=== PATIENT | male | born 1960 | race Caucasian/White ===

== ENCOUNTER 2016-08-04 23:53 | Emergency (ER) | payer MEDICARE, MEDICAID ==
[~2016-08-04] VITALS: Ht 180.3 cm; Wt 72.7 kg
[~2016-08-04 23:53] MED LIST: ASPI-973 PO; CHLO473M13 MM; CHOL100045 PO; LAMO150T2 PO; LEVE100014 PO; LORA1TAB PO; MAPAP PO; SIMV10TA4 PO; [UNRECOGNIZED DRUG - OTHER] TP
[2016-08-04 23:58] VITALS: BP 136/65; PULSE 77; RESP 18; O2SAT 97
--- NOTE | 2016-08-05 00:22 | ED.REPORT ---
HPI-Extremity Problem Lower Date of Service Aug 05, 2016 ED Provider: Dr. Boni German M.D. A 56 year old developmentally delayed male with a history of hypertension, hyperlipidemia, seizure disorder, and autism presents to the ED accompanied by his telephone maintainer with a left calf abrasion onset yesterday between 00:00 and 21: 00. Staff at the patient's assisted living home were concerned because the cause of the abrasion is unknown. The patient's telephone maintainer denies other symptoms. History is limited due to patient's nonverbal baseline. Nursing Notes Stated Complaint: BRUISE AND CUT ON LEG Chief Complaint: Extremity Trauma Nursing Notes Reviewed: Yes Allergies: Coded Allergies: No Known Drug Allergies (Unverified Allergy, Unknown, 09/23/15) Uncoded Allergies: ENVIRONMENTAL - HAYFEVER (Allergy, Unknown, UNKNOWN, 09/22/15) Scheduled ([Dermacerin Cream]) 1 APPLIC TP DAILY Aspirin (Aspirin) 81 Mg Tablet 81 MG PO DAILY Chlorhexidine Gluconate (Chlorhexidine Gluconate) 473 Ml Mouthwash 473 ML MM BID Cholecalciferol (Vitamin D3) (Vitamin D) 1,000 Unit Capsule 1,000 UNIT PO DAILY Lamotrigine (Lamotrigine) 150 Mg Tablet 300 MG PO BID Levetiracetam (Keppra) 1,000 Mg Tablet 1,500 MG PO TID TAKES 1500MG IN AM; 100MG @ NOON & 1500MG IN PM Simvastatin (Simvastatin) 10 Mg Tablet 10 MG PO HS Scheduled PRN ([Mapap]) 500-1,000 MG PO Q6H PRN PRN PRN Lorazepam (Lorazepam) 1 Mg Tablet 1 MG PO TID PRN PRN For Anxiety General Time Seen by MD: 00:21 Transferred From: [facility] Chief Complaint Other (Left Calf Abrasion) Hx Obtained From: Marine Services Technician Unable to Obtain Hx: Patient condition, Mental status Arrived By: Walk-in Onset Occurred: Yesterday Symptom Duration: Since onset Caused by: Mechanism unknown Associated with: Denies: Fever, Unable to walk, Vomiting Pertinent Negative: Relieved by nothing Immunizations: Unknown Recent Healthcare: No recent doctor visit Past Medical History Past Medical History Seizure disorder Hypertension Hyperlipidemia Autism Developmental Delay - Non-verbal, follows simple commands Past Surgical History Dental restorations Removal of cerumen impaction Smoking History Never Smoker Social History Other Social History: Lives in [facility] Ambulatory Status Independent Review of Systems Unable to Obtain ROS Patient condition, Mental status Physical Exam Physical Exam Notes: Initial Vital Signs Vital Signs (First) Date Time Temp Pulse Resp B/P Pulse Ox O2 Delivery O2 Flow Rate FiO2 08/04/16 23:58 36.0 77 18 136/65 97 Room Air Initial VS: Reviewed Head / Eyes: Atraumatic, Normocephalic ENT: Conjunctiva normal, No scleral icterus Neck: Supple, Full range of motion Respiratory: No respiratory distress Skin: Warm, Dry, No cyanosis Lower Extremity / Pelvis / MS: Neurologic intact, Vascular intact Left Leg / Calf: Positive: Ecchymosis present (5x4 cm to medial inferior left calf ), Negative: Erythema present Trauma / Burn / Environmental: Positive: Abrasion (Posterior inferior left calf , consistent with toenail induced injury) No signs of infection No fluctuance or mass Ankle / Foot: No swelling, Neurologic intact, Vascular intact General/Constitutional: Awake, Alert, No acute distress NEUROLOGIC: At baseline per telephone maintainer Re-Eval/Medical Decision Med Decision/Clinical Course Small abrasion and bruise on the lower leg likely the result of a seizure unwitnessed during sleep. Basic first aid applied. Reason blood levels of his seizure medicines were drawn and greater due for a visit for review early this week. Levels not repeated. Discharged in stable condition. Source of Hx: Old records Re-Evaluation/Progress : Time of Eval: 01:00 Patient Status: Condition improved Re-Evaluation/Progress Note: Discussed with patient's telephone maintainer physical exam findings, diagnosis, and plan for discharge. Follow-up and return to the ER instructions given. Patient agrees with plan for care and all questions were addressed. Counseled Regarding: Diagnosis, Need for follow-up, When/why to return to ED Discharge & Departure Shift Change Sign-Out Response to Therapy: Improved Impression: Primary Impression: Abrasion, leg w/o infection Additional Impression: Hematoma of lower extremity Encounter type: initial encounter Laterality: left Qualified Code: S80.12XA - Contusion of left lower leg, initial encounter Disposition: Home Discharge Condition All VS Reviewed: Yes Condition: Improved Patient Instructions: Abrasion (ED), Contusions in Adults (ED) Additional Instructions: I suspect he may have had a small seizure while asleep, and scraped and contused his leg. Follow-up with his doctor regarding the drug levels already drawn. Return if any immediate issues. Cte the abraded area with bacitracin, and cover at night. Continue this until the wound is healed. Referrals: Narayan Albarran DO (PCP) Lenny Don MD (Family) Cristinibsarai Attestation Portions of this note were transcribed by Chuyita Ibrahim. I, Dr. German, personally performed the history, physical exam, and medical decision-making; I reviewed and confirmed the accuracy of the information in the transcribed note. Signed by: Marquita Long, 08/05/2016, 03:00 copies to: Narayan Albarran DO; Lenny Don MD, Christopher W MD Aug 05, 2016 00:21 CHUYITA IBRAHIM Aug 05, 2016 00:59
[2016-08-05 01:21] VITALS: BP 136/65; PULSE 77; RESP 18; O2SAT 97
== END 2016-08-05 01:22 | disposition home or self-care (01) ==
LOC: SED 23:53
DX: S80.812A Abrasion, left lower leg, initial encounter (principal); S80.12XA Contusion of left lower leg, initial encounter; X58.XXXA Exposure to other specified factors, initial encounter; Y92.129 Unspecified place in nursing home as the place of occurrence of the external cause; Y93.89 Activity, other specified; Y99.8 Other external cause status; I10 Essential (primary) hypertension; E78.5 Hyperlipidemia, unspecified; G40.909 Epilepsy, unspecified, not intractable, without status epilepticus; F84.0 Autistic disorder; Z87.898 Personal history of other specified conditions; Z79.82 Long term (current) use of aspirin

== ENCOUNTER 2016-12-06 10:17 | Emergency (ER) | payer MEDICARE, MEDICAID ==
[~2016-12-06] VITALS: Ht 167.6 cm; Wt 63.0 kg
[2016-12-06 10:20] VITALS: BP 136/85; PULSE 103; RESP 16; O2SAT 96
--- NOTE | 2016-12-06 10:54 | ED.REPORT ---
HPI-Head Prob / Injury Date of Service Dec 06, 2016 ED Provider: Ana Elkins MD 56 y/o developmentally delayed male with a hx of autism, HTN, hyperlipidemia and seizure disorder presents to the ED with his caretakers due to a laceration over his left eyebrow after he hit his head on the bathroom counter just prior to arrival. The pts caregivers state this is his typical behavior when he gets frustrated. The pt is non-verbal and is not stating any other complaints. Nursing Notes Stated Complaint: LACERATION ON HEAD Chief Complaint: Head, Face, Neck Trauma Nursing Notes Reviewed: Yes Allergies: Coded Allergies: No Known Drug Allergies (Unverified Allergy, Unknown, 09/23/15) Uncoded Allergies: ENVIRONMENTAL - HAYFEVER (Allergy, Unknown, UNKNOWN, 09/22/15) Scheduled ([Dermacerin Cream]) 1 APPLIC TP DAILY Aspirin (Aspirin) 81 Mg Tablet 81 MG PO DAILY Chlorhexidine Gluconate (Chlorhexidine Gluconate) 473 Ml Mouthwash 473 ML MM BID Cholecalciferol (Vitamin D3) (Vitamin D) 1,000 Unit Capsule 1,000 UNIT PO DAILY Lamotrigine (Lamotrigine) 150 Mg Tablet 300 MG PO BID Levetiracetam (Keppra) 1,000 Mg Tablet 1,500 MG PO TID TAKES 1500MG IN AM; 100MG @ NOON & 1500MG IN PM Simvastatin (Simvastatin) 10 Mg Tablet 10 MG PO HS Scheduled PRN ([Mapap]) 500-1,000 MG PO Q6H PRN PRN PRN Lorazepam (Lorazepam) 1 Mg Tablet 1 MG PO TID PRN PRN For Anxiety General Time Seen by Provider: 10:34 Chief Complaint Laceration Hx Obtained From: Custodial Foreman Arrived By: Walk-in Onset Occurred: Just prior to arrival Symptom Duration: Since onset Caused by: Blunt trauma Recent Healthcare: No recent doctor visit Similar Sx Previous: No Past Medical History Past Medical History Seizure disorder Hypertension Hyperlipidemia Autism Developmental Delay - Non-verbal, follows simple commands Past Surgical History Dental restorations Removal of cerumen impaction Smoking History Never Smoker Social History Other Social History: Lives in [facility] Ambulatory Status Independent Review of Systems Reports: laceration over left eyebrow Complete sys rev & neg: except as marked. Physical Exam Initial Vital Signs Vital Signs (First) Date Time Temp Pulse Resp B/P Pulse Ox O2 Delivery O2 Flow Rate FiO2 12/06/16 10:20 36.8 103 16 136/85 96 Room Air Initial VS: Reviewed Respiratory: Breath sounds normal, Clear to auscultation, No respiratory distress Cardiovascular: Regular rate & rhythm, Heart sounds normal, Intact distal pulses Extremities: Vascular intact, Neuro intact, No swelling, No tenderness Skin: Warm, Dry, No cyanosis General/Constitutional: Awake, Alert, Cooperative Non-verbal Head / Eyes: PERRL, EOMI, No periorbital swelling, Conjunctiva NL, Eyelids NL Cornea/Anterior Chamber: Negative: Hyphema L, Hyphema R Conjunctiva / Sclera: Negative: Injected left, Injected right, Subconj hemorrhage left, Subconj hemorrhage right 1cm laceration over left eyebrow ENT: Airway patent, Nose exam NL, No facial swelling Right TM obscured by cerumen. Left TM normal. Neck: Atraumatic, Supple, Full range of motion Neurologic: No motor deficits, No sensory deficits Back: Atraumatic, Full range of motion No spinal tenderness. Procedures Laceration Management Laceration Management: 2 suhail placed in eyebrow wound. bleeding controlled post procedure. pt did remarkably well with procedure. discussed wound care with caregivers. Procedure Performed by: Allied health pract Consent / Setup / Site Prep: Consent from guardian, Consent from online advertising manager Location of Wound: l eyebrow Wound Length: 1 cm Local Anesthesia: Other (let) Digital Block: No Irrigation: Copious Foreign Body Explore / Removal: Explored for foreign body Re-Eval/Medical Decision Med Decision/Clinical Course 1110- report from Dr Elaine. I personally examined pt. 1 cm laceration to left eyebrow. otherwise, grossly neuro is intact and pt at baseline per caregivers. Patient calm in room with LET over eyebrow. Pt just given ativan for procedure. will give med time to work before i procede. 1215- pt tolerated procedure well. discussed wound care with caregivers. not utd on tetanus Source of Hx: Old records Counseled Regarding: Diagnosis, Need for follow-up, When/why to return to ED Discharge & Departure Primary Impression: Facial laceration Encounter type: initial encounter Qualified Code: S01.81XA - Laceration without foreign body of other part of head, initial encounter Disposition: Home All VS Reviewed: Yes Condition: Stable Patient Instructions: Laceration (ED) Additional Instructions: Thank you for entrusting us with Darnell's care today. 2 suhail were placed in Darnell's eyebrow today. These can be taken out in 7 days. In the meantime monitor for signs of infection including redness, purulent drainage, increased pain or swelling and return to the ER or see his PCP if these occur. Also monitor for altered mental status, decreased level of consciousness, fevers, or any atypical findings in Darnell's return to the ER immediately if these occur. You may apply topical antibiotic ointment twice a day for 5 days to prevent infection. Otherwise do not get wound wet for 24 hours and then gentle washing with soap and water. Cover with a bandage if necessary. use Tylenol as needed for pain apply ice to wound for swelling and pain at least 3 times a day for 20 minutes. Referrals: Narayan Albarran DO (PCP) EDSupervising Provider for APC: Ana Elkins MD, Sarah C MD Dec 06, 2016 10:54 Katina Berry Dec 06, 2016 11:03 Jaylyn Melendez Dec 06, 2016 11:16
[2016-12-06] MEDS ORDERED: Lidocaine-Epi-Tetracaine Solution 3 mL Syringe TOPICAL ONE (10:55)
[2016-12-06] MEDS ORDERED: LORazepam 2 mg Tablet PO ONE (10:55)
[2016-12-06] MEDS ORDERED: Tissue Adhesive Liq (CS Supplied) TOPICAL ONE (12:20)
[2016-12-06] MEDS ORDERED: TdaP Vaccine 0.5 mL Inj IM ONE (12:35)
[2016-12-06 12:57] VITALS: BP 120/87; PULSE 90; RESP 14; O2SAT 98
== END 2016-12-06 12:58 | disposition home or self-care (01) ==
LOC: SED 10:17
DX: S01.112A Laceration without foreign body of left eyelid and periocular area, initial encounter (principal); W22.8XXA Striking against or struck by other objects, initial encounter; Y93.89 Activity, other specified; Y92.002 Bathroom of unspecified non-institutional (private) residence as the place of occurrence of the external cause; Y99.8 Other external cause status; I10 Essential (primary) hypertension; E78.5 Hyperlipidemia, unspecified; F84.0 Autistic disorder; Z79.82 Long term (current) use of aspirin

== ENCOUNTER 2016-12-09 18:24 | Emergency (ER) | payer MEDICARE, MEDICAID ==
[2016-12-09 18:33] VITALS: BP 101/66; PULSE 91; RESP 16; O2SAT 98
--- NOTE | 2016-12-09 18:55 | ED.REPORT ---
HPI-Seizure Date of Service Dec 09, 2016 ED Provider: Marylou Chavis MD Pt is a 56 year old, non-verbal male who lives in his own home with 24 hour care who presents to the ED with concerns for 3 seizures that occurred today. His healthcare applications analyst reports that he typically has 1-2 seizers per month, but had three today. She reports that these lasted about 2 minutes each. Pt's caregiver states that he experienced trauma to his head on , requiring several suhail to his head. He has been taking his seizure medications as prescribed. Nursing Notes Stated Complaint: 3 SEIZURES TODAY Chief Complaint: Seizure Nursing Notes Reviewed: Yes Allergies: Coded Allergies: No Known Drug Allergies (Unverified Allergy, Unknown, 09/23/15) Uncoded Allergies: ENVIRONMENTAL - HAYFEVER (Allergy, Unknown, UNKNOWN, 09/22/15) Scheduled ([Dermacerin Cream]) 1 APPLIC TP DAILY Aspirin (Aspirin) 81 Mg Tablet 81 MG PO DAILY Chlorhexidine Gluconate (Chlorhexidine Gluconate) 473 Ml Mouthwash 473 ML MM BID Cholecalciferol (Vitamin D3) (Vitamin D) 1,000 Unit Capsule 1,000 UNIT PO DAILY Lamotrigine (Lamotrigine) 150 Mg Tablet 300 MG PO BID Levetiracetam (Keppra) 1,000 Mg Tablet 1,500 MG PO TID TAKES 1500MG IN AM; 100MG @ NOON & 1500MG IN PM Simvastatin (Simvastatin) 10 Mg Tablet 10 MG PO HS Scheduled PRN ([Mapap]) 500-1,000 MG PO Q6H PRN PRN PRN Lorazepam (Lorazepam) 1 Mg Tablet 1 MG PO TID PRN PRN For Anxiety General Time Seen by Provider: 18:59 Chief Complaint Chief Complaint: Seizure, focal Hx Obtained From: Business Development Coordinator Arrived By: Walk-in Onset Occurred: Just prior to arrival Similar Sx Previous: Yes Past Medical History Past Medical History Seizure disorder Hypertension Hyperlipidemia Autism Developmental Delay - Non-verbal, follows simple commands Past Surgical History Dental restorations Removal of cerumen impaction Smoking History Never Smoker Social History Other Social History: Lives in [facility] Ambulatory Status Independent Review of Systems Unable to Obtain ROS Mental status Constitutional: Denies: Fever, Malaise Neurologic: Reports: Seizure Complete sys rev & neg: except as marked. Physical Exam Initial Vital Signs Vital Signs (First) Date Time Temp Pulse Resp B/P Pulse Ox O2 Delivery O2 Flow Rate FiO2 12/09/16 18:33 36.0 91 16 101/66 98 Room Air Initial VS: Reviewed Head / Eyes: Atraumatic, Normocephalic, PERRL Abdomen / GI: Soft, Non-tender, No guarding, No rebound, No distention Skin: Warm, Dry, No cyanosis General/Constitutional: Awake, Cooperative Well healing laceration and hematoma over his left eyebrow Neck: Atraumatic, Supple Respiratory / Chest: Breath sounds NL, Breath sounds = bilat, No respiratory distress Cardiovascular: Heart rate NL, Regular rhythm, Heart sounds NL Neurologic: No sensory deficits Pt is at his baseline, per rn provider relations. ENT: Airway patent Cerumen aclusion bilaterally Interpretation & Diagnostics Interpretation & Diagnostics: Urine dip is negative Lab Results Interpretation Result Diagram: 12/09/16194412/09/161944 Test 12/09/16 19:45 12/09/16 21:00 White Blood Count 8.8th/mm3 (3.8-10.1) Red Blood Count 4.65mil/mm3 (4.40-5.80) Hemoglobin 14.0g/dL (13.8-17.2) Hematocrit 42.1% (41.0-50.0) Mean Corpuscular Volume 90.5fL (81-100) Mean Corpuscular Hemoglobin 30.1pg (27.0-35.0) Mean Corpuscular Hemoglobin Concent 33.3% (32.0-37.0) Red Cell Distribution Width 11.8% (12.3-15.4) Platelet Count 293bil/L (150-400) Neutrophils (%) (Auto) 79.3% (40-74) Lymphocytes (%) (Auto) 13.3% (14-46) Monocytes (%) (Auto) 6.4% (4-12) Eosinophils (%) (Auto) 0.2% (0-5) Basophils (%) (Auto) 0.6% (0-3) Sodium Level 139mEq/L (134-144) Potassium Level 4.1mEq/L (3.5-5.2) Chloride Level 103mEq/L (97-108) Carbon Dioxide Level 23mmol/L (18-29) Blood Urea Nitrogen 9mg/dL (6-24) Creatinine 0.77mg/dL (0.76-1.27) Estimat Glomerular Filtration Rate 111mL/min (>59) Glucose Level 106mg/dL (60-99) Calcium Level 8.9mg/dL (8.5-10.1) Magnesium Level 2.2mg/dL (1.6-2.6) Total Bilirubin 0.3mg/dL (0.0-1.2) Aspartate Amino Transf (AST/SGOT) 19U/L (0-50) Alanine Aminotransferase (ALT/SGPT) 16U/L (0-44) Alkaline Phosphatase 79U/L (25-150) Total Protein 6.8g/dL (6.4-8.4) Albumin 3.9g/dL (3.4-5.0) Hold Walters Top Tube Received (Received) Hold Urine Received (Received) Re-Eval/Medical Decision Source of Hx: Old records, Business Development Coordinator Counseled Regarding: Diagnosis, Lab results, Need for follow-up, When/why to return to ED Discharge & Departure Impression: Primary Impression: Seizure Disposition: Home Discharge Condition All VS Reviewed: Yes Condition: Stable Additional Instructions: Labs were completely unremarkable today There is no evidence of a bladder infection or infection otherwise. A CT scan of the head was done given his 3 seizures today and the recent head trauma. CT scan was entirely normal At this point I do not have a full explanation for why he has had 3 seizures today. Please continue all of his seizure medications His seizure medication drug levels should be available [address] contact [address] Osuna, his neurologist, to make sure the levels are appropriate and to see if he has any recommendations on changing medications. Posterior excellent job of cooperating and making the work up easier today. I hope that he does not have any additional seizures tonight Referrals: Narayan Albarran DO (PCP) Scribe Attestation Portions of this note were transcribed by Elsa Medina. I, Dr. Chavis personally performed the history, physical exam and medical decision-making; I reviewed and confirmed the accuracy of the information in the transcribed note. Signed by: Marquita Rios, 12/09/2016 [Time] copies to: Narayan Albarran DO; [place]villeSergio sanders MD, Shawna L MD Dec 09, 2016 18:55 CORNELIO MEDINA Dec 09, 2016 19:03
--- NOTE | 2016-12-09 19:53 | DRSVH ---
PROCEDURE: CT BRAIN WITHOUT CONTRAST ([id number]) INDICATIONS: trauma 48hrs ago, increased seizures TECHNIQUE: Noncontrast 4.5 mm thick angled axial sections acquired from the foramen magnum to the vertex, with c oronal reformats. COMPARISON: 06.24.[address] FINDINGS: Image quality: Excellent. CSF spaces: Basal cisterns are patent. No extra-axial fluid collections. Ventricles are normal in size and shape. Brain: No midline shift. No intracranial masses or hemorrhage. Valentin-white matter interface is norm al. Skull and face: Calvarium and visualized facial bones are intact, without suspicious lesions. Sinuses: Visualized sinuses and mastoids are clear. IMPRESSION: No acute process. Dictated by: Lincoln Bolanos M.D. on 12/09/2016 at 19:50 Approved by: Lincoln Bolanos M.D. on 12/09/2016 at 19:51
[2016-12-09 19:58] LABS: BASOPHILS % (AUTO) 0.6 % (0-3); EOSINOPHILS % (AUTO) 0.2 % (0-5); MONOCYTES % (AUTO) 6.4 % (4-12); Mean Corpuscular Hemoglobin 30.1 pg (27.0-35.0); Mean Corpuscular Volume 90.5 fL (81-100); NEUTROPHILS % (AUTO) 79.3 % (40-74); Platelet Count 293 bil/L (150-400)
[2016-12-09 20:20] LABS: Magnesium 2.2 mg/dL (1.6-2.6)
[2016-12-09 21:18] VITALS: BP 116/78; PULSE 78; RESP 14; O2SAT 96
== END 2016-12-09 21:19 | disposition home or self-care (01) ==
LOC: SED 18:24
DX: R56.9 Unspecified convulsions (principal); I10 Essential (primary) hypertension; E78.5 Hyperlipidemia, unspecified; F84.0 Autistic disorder; Z87.828 Personal history of other (healed) physical injury and trauma; Z79.82 Long term (current) use of aspirin